=== PATIENT | female | born 1945 | race Caucasian/White ===

== ENCOUNTER 2017-05-03 09:20 | Inpatient (IN) | payer MEDICARE, OTHER ==
[~2017-05-03] VITALS: Ht 152.4 cm; Wt 54.4 kg
[~2017-05-03 09:20] MED LIST: ACLI400A2 IH; ALBU2.5V5 NEB; ALPR0.25 PO; Aspirin PO; CETI10TA22 PO; CHLO10CA5 PO; DOCU-109 PO; GABA-585 PO; GUAI1CAP16 PO; HYDR-2758 PO; HYDR-971 PO; Hydrocodone/Acetaminophen PO; IPRA3AMP NEB; LEVO150T PO; LISI10TA2 PO; LISI2.5T PO; LOSA100T2 PO; LOSA25TA PO; LOSA50TA2 PO; MAGN400O7 PO; MECL12.52 PO; METH29OI TP; METO-269 PO; METO25TA2 PO; ONDA4TAB7 PO; Oxycodone Hcl/Acetaminophen PO; PANT40TA5 PO; POLY17PO29 PO; PRED20TA PO; Polyethylene Glycol 3350 PO; SERT100T PO; TEMA30CA6 PO; TIOT18CA IH; TOLT2CAP PO; TOPI25TA52 PO; TRAM-48 PO; TRAZ150T49 PO; TRAZ50TA15 PO; VENTOLIN HFA18 GM IH
--- NOTE | 2017-05-03 09:44 | PHYS DOC ---
Past Medical History Past Medical History: Alcoholism, Anxiety, Arthritis, Cancer, COPD, Depression , GERD, High Cholesterol, Hypertension, Kidney Stone, Lung Disease, Migraines, Pneumonia, Seizure, Sinusitis, UTI Additional Past Medical Histor: suicidal ideation, alcoholism, LUNG CA Past Surgical History: Cancer Surgery, Cholecystectomy, Hysterectomy, Knee Replacement, Tonsillectomy Additional Past Surgical Histo: BACK SX Alcohol Use: Sober Drug Use: None Adult General Chief Complaint Chief Complaint: ABDOMINAL PAIN HPI HPI Patient is a 72 year old female who presents with abdominal pain. Pain started acutely overnight, localized to the. Umbilical, right middle and area. Patient denies previous similar symptoms, no nausea or vomiting. Patient has a new [place] abdomen but does not recall striking her abdomen or any falls or trauma. She denies that she takes any blood thinners. Prior abdominal surgeries include cholecystectomy and hysterectomy. She denies any fevers, has not attempted any symptom controlling medication. Primary care physician is Dr. Rdz Review of Systems Review of Systems Constitutional: Denies fever or chills [] Eyes: Denies change in visual acuity, redness, or eye pain [] HENT: Denies nasal congestion or sore throat [] Respiratory: Denies cough or shortness of breath [] Cardiovascular: Denies chest pain GI: Per history of present illness, denies changes in bowel or bladder. : Denies dysuria or hematuria [] Musculoskeletal: Denies back pain or joint pain [] Integument: Denies rash or skin lesions [] Neurologic: Denies headache, focal weakness or sensory changes [] Current Medications Current Medications Current Medications Medications (Trade) Dose Ordered Sig/Tatiana Start Time Stop Time Status Last Admin Dose Admin Dextrose/Sodium Chloride 1,000 ml @ 1,000 mls/hr 1X ONCE 05/03/17 11:45 05/03/17 12:44 DC 05/03/17 11:45 1,000 MLS/HR Fentanyl Citrate (Fentanyl 2ml Vial) 50 mcg 1X ONCE 05/03/17 09:45 05/03/17 09:46 DC 05/03/17 10:32 50 MCG Info (Do NOT chart on this entry -- for MONITORING) 1 each PRN DAILY PRN 05/03/17 10:45 05/05/17 10:44 Iohexol (Omnipaque 300 Mg/ml) 75 ml 1X ONCE 05/03/17 11:00 05/03/17 11:01 DC 05/03/17 10:50 75 ML Piperacillin Sod/ Tazobactam Sod (Zosyn Per Pharmacy) 1 each PRN DAILY PRN 05/03/17 10:45 Piperacillin Sod/ Tazobactam Sod 3.375 gm/Sodium Chloride 50 ml @ 100 mls/hr 1X ONCE 05/03/17 11:00 05/03/17 11:29 DC 05/03/17 12:03 100 MLS/HR Sodium Chloride 1,000 ml @ 100 mls/hr 1X ONCE 05/03/17 09:45 05/03/17 19:44 DC 05/03/17 10:26 100 MLS/HR Allergies Allergies Allergies Coded Allergies Type Severity Reaction Last Updated Verified No Known Medication Allergies Allergy Unknown 05/03/17 Yes codeine Adverse Reaction Intermediate GI 05/23/15 Yes oxycodone Adverse Reaction Intermediate "MADE ME SICK TO MY STOMACH" 05/23/15 Yes Physical Exam Physical Exam Constitutional: Well developed, well nourished, mild acute distress, non-toxic appearance. [] HENT: Normocephalic, atraumatic, bilateral external ears normal, oropharynx moist, no oral exudates, nose normal. [] Eyes: PERRLA, EOMI, conjunctiva normal, no discharge. [] Neck: Normal range of motion, no tenderness, supple, no stridor. [] Cardiovascular:Heart rate tachycardic with regular rhythm, no murmur [] Lungs & Thorax: Bilateral breath sounds clear to auscultation, no wheeze Abdomen: Bowel sounds normal, soft, nondistended, focal tenderness to palpation in the right middle quadrant and epigastric region with voluntary guarding, anterior abdominal wall bruise noted, negative McBurney's Skin: Warm, dry, no erythema, no rash. [] Back: No tenderness, no CVA tenderness. [] Extremities: No tenderness, no cyanosis, no clubbing, ROM intact, no edema. [] Neurologic: Alert and oriented X 3, normal motor function, normal sensory function, no focal deficits noted. [] Psychologic: Affect normal, judgement normal, mood normal. [] Current Patient Data Vital Signs Vital Signs Date Time Temp Pulse Resp B/P (MAP) Pulse Ox O2 Delivery O2 Flow Rate FiO2 05/03/17 12:06 118 19 149/70 (96) 93 Room Air 05/03/17 09:30 98.5 98.5 Lab Values Laboratory Tests Test 05/03/17 09:57 05/03/17 10:00 05/03/17 11:15 POC Hemoglobin 16.0 g/dL (12-15) H POC Hematocrit 47 % (36-40) H POC Sodium 143 mmol/L (135-145) POC Potassium 4.1 mmol/L (3.5-5.0) POC Chloride 103 mmol/L (98-110) POC Total CO2 25 mmol/L (23-32) Anion Gap 20 mmol/L (6-14) H POC Blood Urea Nitrogen 14 mg/dL (8-26) POC Creatinine 0.9 mg/dL (0.5-1.4) Glucose Level 79 mg/dL (70-99) POC Ionized Calcium (Enma) 1.02 mmol/L (1.13-1.32) L White Blood Count 6.8 x10^3/uL (4.0-11.0) Red Blood Count 4.52 x10^6/uL (3.50-5.40) Hemoglobin 14.7 g/dL (12.0-15.5) Hematocrit 43.0 % (36.0-47.0) Mean Corpuscular Volume 95 fL (79-100) Mean Corpuscular Hemoglobin 33 pg (25-35) Mean Corpuscular Hemoglobin Concent 34 g/dL (31-37) Red Cell Distribution Width 14.4 % (11.5-14.5) Platelet Count 276 x10^3/uL (140-400) Neutrophils (%) (Auto) 64 % (31-73) Lymphocytes (%) (Auto) 25 % (24-48) Monocytes (%) (Auto) 10 % (0-9) H Eosinophils (%) (Auto) 0 % (0-3) Basophils (%) (Auto) 1 % (0-3) Neutrophils # (Auto) 4.3 x10^3uL (1.8-7.7) Lymphocytes # (Auto) 1.7 x10^3/uL (1.0-4.8) Monocytes # (Auto) 0.7 x10^3/uL (0.0-1.1) Eosinophils # (Auto) 0.0 x10^3/uL (0.0-0.7) Basophils # (Auto) 0.1 x10^3/uL (0.0-0.2) Prothrombin Time 11.9 SEC (11.7-14.0) Prothrombin Time INR 0.9 (0.8-1.1) Lactic Acid Level 3.7 mmol/L (0.4-2.0) H Total Bilirubin 0.7 mg/dL (0.2-1.0) Direct Bilirubin 0.1 mg/dL (0.0-0.2) Aspartate Amino Transferase (AST) 93 U/L (15-37) H Alanine Aminotransferase (ALT) 69 U/L (14-59) H Alkaline Phosphatase 114 U/L (46-116) Total Protein 8.9 g/dL (6.4-8.2) H Albumin 4.1 g/dL (3.4-5.0) Lipase 164 U/L (73-393) Urine Collection Type Unknown Urine Color Yellow Urine Clarity Clear Urine pH 5.5 Urine Specific [place] >=1.030 Urine Protein 30 mg/dL (NEG-TRACE) Urine Glucose (UA) Negative mg/dL (NEG) Urine Ketones (Stick) 15 mg/dL (NEG) Urine Blood Small (NEG) Urine Nitrite Negative (NEG) Urine Bilirubin Negative (NEG) Urine Urobilinogen Dipstick 0.2 mg/dL (0.2 mg/dL) Urine Leukocyte Esterase Negative (NEG) Urine RBC 0 /HPF (0-2) Urine WBC 0 /HPF (0-4) Urine Squamous Epithelial Cells Few /LPF Urine Bacteria 0 /HPF (0-FEW) Laboratory Tests 05/03/17 10:00 Laboratory Tests 05/03/17 09:57 EKG EKG 126 bpm, sinus tach, normal axis, normal intervals, J-point elevation precordial leads, nonsichemic T waves, interpreted by tn Radiology/Procedures Radiology/Procedures CT abd/pelvis: IMPRESSION: 1. Streaky increased density in the subcutaneous fat of the right mid anterior abdominal wall compatible with nonspecific inflammation or contusion. Is there clinical evidence of cellulitis or trauma this region? 2. Otherwise no acute abdominal or pelvic abnormality is detected. Course & Med Decision Making Course & Med Decision Making Pertinent Labs and Imaging studies reviewed. (See chart for details) Pt given IV fentanyl and IV fluids started, EKG, UA, labs, CT abd pelvis ordered. Reviewed pt's history and she has a h/o Etoh abuse. When asked she states she still drinks but denies that she could have forgotten a fall. After IV fluids, pt still has elevated HR and has elevated lactic acid. Likely 2/2 to dehydration, infection less likely but IV zosyn given before remained of workup returned. I contacted Dr. Goodrich to discuss admission. She recommended hydration with repeat lactic acid and possible dispo home. Agreed and d5NS bolus ordered as pt has anion gap and concern for possible AKA,as urine is not returned. This was ordered. After another hour, pt's HR had not improved and BP started to increase. Pt may be withdrawing from alcohol and 5mg Valium ordered. Pt likely no longer candidate for discharge. Recontacted [facility] for admission, Dr. Alvarez accepted. Dragon Disclaimer Dragon Disclaimer This electronic medical record was generated, in whole or in part, using a voice recognition dictation system. Departure Departure Impression: Primary Impression: Alcohol withdrawal Additional Impressions: Abdominal contusion Alcoholic ketoacidosis Disposition: ADMITTED INPATIENT Admitting Physician: Brionna Alvarez Condition: GUARDED Referrals: EMMETT GOODEN MD (PCP) Problem Qualifiers MATEO WILKERSON MD May 03, 2017 09:44
[2017-05-03] MEDS ORDERED: fentaNYL PF VIAL 100 MCG/2 ML VIAL IV ONE (09:45)
[2017-05-03] MEDS ORDERED: IV NORMAL SALINE 1000ML BAG 1,000 ML IV ONE (09:45)
--- NOTE | 2017-05-03 09:46 | EKG ---
[facility] [address] [place] [address] Test Date: 2017-05-03 Test Time: 09:33:32 Pat Name: MAMTA KNIGHT Department: Room: Gender: F Travel Registered Nurse Icu: : 1945 Requested By: MATEO WILKERSON Order Number: [id number] Reading MD: Emanuel Nielson Measurements Intervals [place] Rate: 126 P: 121 AK: 134 QRS: 57 QRSD: 94 T: 26 QT: 304 QTc: 441 Interpretive Statements SINUS TACHYCARDIA Electronically Signed On 05-03-2017 10:18:24 CDT by Emanuel Nielson
[2017-05-03 10:02] LABS: POTASSIUM ISTAT 4.1 mmol/L (3.5-5.0)
[2017-05-03 10:27] LABS: ALBUMIN 4.1 g/dL (3.4-5.0); DIRECT BILIRUBIN 0.1 mg/dL (0.0-0.2); TOTAL BILIRUBIN 0.7 mg/dL (0.2-1.0); TOTAL PROTEIN 8.9 g/dL (6.4-8.2)
[2017-05-03 10:34] LABS: BASO # 0.1 x10^3/uL (0.0-0.2); BASO % 1 % (0-3); EOS % 0 % (0-3); HEMOGLOBIN 14.7 g/dL (12.0-15.5); LYMPH # 1.7 x10^3/uL (1.0-4.8); LYMPH % 25 % (24-48); MEAN CORPUSCULAR HEMOGLOBIN 33 pg (25-35); MEAN CORPUSCULAR HGB CONC 34 g/dL (31-37); MEAN CORPUSCULAR VOLUME 95 fL (79-100); MONO % 10 % (0-9); NEUT % 64 % (31-73); PLATELET COUNT 276 x10^3/uL (140-400); RED BLOOD COUNT 4.52 x10^6/uL (3.50-5.40); RED CELL DISTRIBUTION WIDTH 14.4 % (11.5-14.5); WHITE BLOOD COUNT 6.8 x10^3/uL (4.0-11.0)
[2017-05-03 10:43] LABS: INR 0.9 (0.8-1.1); PROTHROMBIN TIME PATIENT 11.9 SEC (11.7-14.0)
[2017-05-03] MEDS ORDERED: CONTRAST GIVEN MC PRN (10:45)
[2017-05-03] MEDS ORDERED: PIP/TAZO PER PHARMACY MC PRN (10:45)
[2017-05-03] MEDS ORDERED: PIPERACILLIN/TAZOBACTAM 3.375 GM in IV NORMAL SALINE 50ML 50 ML IV ONE (11:00)
[2017-05-03] MEDS ORDERED: IOHEXOL 300 MG/ML 75 ML VIAL IV ONE (11:00)
--- NOTE | 2017-05-03 11:27 | RAD ---
CT of the abdomen and pelvis with contrast, 05/03/2017: History: Abdominal pain Multidetector CT imaging was performed following an IV bolus injection of iodinated contrast material. No oral contrast material was administered as requested. Comparison is made to a study from 07/09/2016. There is mild linear atelectasis and/or scarring in the right base. There is no evidence of a hepatic mass or bile duct dilatation. The gallbladder is surgically absent. No pancreatic abnormality is detected. The spleen is of normal size. There is a tiny cyst in the upper pole the left kidney. The kidneys are otherwise unremarkable. No adrenal abnormality is seen. There is moderate aortoiliac calcific plaquing without evidence of aneurysm. No abdominal or pelvic adenopathy is seen. The uterus is surgically absent. A single fluid-filled small bowel loop in the left upper quadrant is at the upper limits of normal in size. There is gas and stool scattered throughout the colon. There is no evidence of obstruction. Thickening of the gastric cheng is likely due to lack of gastric distention. No free air or significant free fluid is evident in the abdomen or pelvis. There is streaky increased density in the subcutaneous tissues of the anterior abdominal wall at the mid abdominal level on the right. An internal fixation device is present in the left hip. There are mild scattered degenerative changes in the spine. IMPRESSION: 1. Streaky increased density in the subcutaneous fat of the right mid anterior abdominal wall compatible with nonspecific inflammation or contusion. Is there clinical evidence of cellulitis or trauma this region? 2. Otherwise no acute abdominal or pelvic abnormality is detected. PQRS Compliance Statement: One or more of the following individualized dose reduction techniques were utilized for this examination: 1. Automated exposure control 2. Adjustment of the mA and/or kV according to patient size 3. Use of iterative reconstruction technique
[2017-05-03 11:32] LABS: BILIRUBIN,URINE NEGATIVE (NEG); GLUCOSE,URINE NEGATIVE (NEG); NITRITE,URINE NEGATIVE (NEG); PH,URINE 5.5; PROTEIN,URINE 30 mg/dL (NEG-TRACE); UROBILINOGEN,URINE 0.2 mg/dL (0.2 mg/dL)
[2017-05-03] MEDS ORDERED: IV DEXTROSE 5% - 0.9 % NACL 1,000 ML IV ONE (11:45)
[2017-05-03 11:47] LABS: BACTERIA,URINE 0 /HPF (0-FEW); RBC,URINE 0 /HPF (0-2); SQUAMOUS EPITHELIAL CELL,UR FEW /LPF; WBC,URINE 0 /HPF (0-4)
[2017-05-03] MEDS: chlordiazePOXIDE HCL 25 MG CAPSULE PO SCH ×2 (13:15→18:07)
[2017-05-03] MEDS ORDERED: MULTIVIT INFUSN,ADULT 4,VIT K 10 ML, THIAMINE 100 MG, FOLIC ACID 1 MG in IV NORMAL SALI... IV ONE (13:15)
[2017-05-03] MEDS ORDERED: VENL75CA6 PO (13:22)
[2017-05-03] MEDS ORDERED: TRAZ150T49 PO (13:23)
[2017-05-03] MEDS ORDERED: METO-239 PO (13:24)
--- NOTE | 2017-05-03 14:30 | HP ---
ADMIT DATE: 05/03/2017 DATE OF SERVICE: 05/03/2017 CHIEF COMPLAINT: Abdominal pain. HISTORY OF PRESENT ILLNESS: The patient is a pleasant 72-year-old female who drinks vodka. We have admitted her in the past. Once again, she presents with abdominal pain after she fell. She does have a bruise on her abdomen. I suspect she fell after drinking. We did a CAT scan. It is not showing any severe problems, but she is tachycardic with a rate in the 120s and appears to be probably having some alcohol withdrawal. I discussed the case with the ER physician. We are going to admit the patient with alcohol withdrawal protocol. PAST MEDICAL HISTORY: Alcoholism, anxiety, arthritis, lung cancer, COPD, depression, GERD, hyperlipidemia, hypertension, kidney stones, migraines, pneumonia, seizure, sinusitis, UTI suicidal ideation, knee replacement, tonsillectomy and back surgery. ALLERGIES: CODEINE AND OXYCODONE. FAMILY HISTORY: Diabetes. SOCIAL HISTORY: She drinks heavily vodka, although she states she is trying to quit. I think she smokes, but she is telling she apparently has quit that as well. No drugs. MEDICATIONS: Reviewed. REVIEW OF SYSTEMS: GENERAL: No history of weight change, weakness or fevers. SKIN: No bruising, hair changes or rashes. EYES: No blurred, double or loss of vision. NOSE AND THROAT: No history of nosebleeds, hoarseness or sore throat. HEART: No history of palpitations, chest pain or shortness of breath on exertion. LUNGS: Denies cough, hemoptysis, wheezing or shortness of breath. GASTROINTESTINAL: She complains of abdominal pain. GENITOURINARY: No history of frequency, urgency, hesitancy or nocturia. NEUROLOGIC: She complains of agitation and weakness. PSYCHIATRIC: No history of panic, anxiety or depression. ENDOCRINE: No history of heat or cold intolerance, polyuria or polydipsia. EXTREMITIES: Denies muscle weakness, joint pain, pain on walking or stiffness. PHYSICAL EXAMINATION: VITAL SIGNS: Temperature afebrile, pulse 126, respirations 18, blood pressure 163/83. GENERAL: She is alert, cooperative, pleasant, but having some withdrawal. HEART: Tachycardic S1, S2. LUNGS: Clear but diminished. ABDOMEN: Soft. There is a large bruise with some tenderness. EXTREMITIES: Trace edema. SKIN: Thin and frail. ENDOCRINE: No thyromegaly. LYMPHATICS: No cervical nodes. HEMATOPOIETIC: No bruising. LABORATORY DATA: White count 6, hemoglobin 14, platelets 276. Electrolytes normal other than an anion gap of 20, ionized calcium of 1.02, AST 93, ALT 69, total protein 8.9, lactic acid a little high at 3.7. ASSESSMENT AND PLAN: Alcohol withdrawal with probable recent fall with contusion to her abdomen. Metabolic acidosis, probably multifactorial, perhaps even an element of alcoholic ketoacidosis. The patient has been admitted. We will give her IV fluids, multiple vitamins, thiamine, benzos, continue home medicines. YANNICK RAZO DO DR: KIA/dayton JOB#: [id number] / [id number]
[2017-05-03] MEDS: fentaNYL PF VIAL 100 MCG/2 ML VIAL IV PRN ×2 (18:08→21:44)
[2017-05-03] MEDS: PIPERACILLIN/TAZOBACTAM 2.25 GM in IV NORMAL SALINE 50ML 50 ML IV SCH (18:24)
[2017-05-03 18:51] VITALS: BP 172/82
[2017-05-03 19:00] VITALS: BP 154/91
[2017-05-03] MEDS: traZODone 50 MG TABLET. PO SCH (21:43)
[2017-05-03 23:00] VITALS: BP 129/77
[2017-05-04] MEDS: chlordiazePOXIDE HCL 25 MG CAPSULE PO SCH ×4 (00:55→17:22)
[2017-05-04] MEDS: PIPERACILLIN/TAZOBACTAM 2.25 GM in IV NORMAL SALINE 50ML 50 ML IV SCH ×2 (00:55→06:22)
--- NOTE | 2017-05-04 05:15 | ACF ---
Admission Forms Criteria ABDOMINAL PAIN Clinical Indications for Admission to Inpatient Care ( hoopa/check or initial the applicable condition/criteria): Admission is indicated for ANY ONE of the following (1)(2)(3)(4)(5)(6): [ ]I. Surgery needed that cannot be performed on ambulatory basis [ ]II. Peritoneal signs present (eg, rebound tenderness, rigidity) [ ]III. Evaluation requires patient to not eat or drink for extended period ( eg, more than 24 hours). [X]IV. Inpatient admission required[B] rather than observation care (see Abdominal Pain: Observation Care guideline as appropriate) because of ANY ONE of the following(7)(8)(9): [ ] a) Hemodynamic instability [ ]b) Severe pain requiring acute inpatient management [X]c) Identification of etiology or finding that requires inpatient care (eg, aortic dissection, free air,bowel ischemia)(10) [ ]d) Absent bowel sounds with complete ileus (11) [ ]e) Signs of intestinal obstruction[C] [ ]f) Suspected toxic megacolon [ ]g) Severe electrolyte abnormalities requiring inpatient care [ ]h) High fever or infection requiring inpatient admission as indicated by ANY ONE of the following (12)(13): [ ]i) Appropriate outpatient or observation care antimicrobial treatment unavailable, not effective, or not feasible [ ]ii) Documented bacteremia [ ]iii) Temperature greater than 104.9 degrees F (40.5 degrees C) (oral) [ ]iv) Temperature greater than 103.1 degrees F (39.5 degrees C) ( oral) or less than 96.8 degrees F (36 degrees C) (rectal) that does not respond to all emergency treatment measures [ ]i) IV fluid required rather than oral rehydration to replace significant ongoing (eg, for greater than 24 hours) losses (greater than 3 L/m2 per day)(14)(15) [ ]j) Percutaneous or open drainage (eg, abscess, biliary tract) procedures [ ]k) Parenteral nutrition regimen that must be implemented on inpatient basis [ ]l) Other condition, treatment, or monitoring requiring inpatient admission Extended stay beyond goal length of stay may be needed for (1)(3)(4)(10)(16): [ ]a) Surgery (e.g., colectomy, revascularization procedure) [ ]b) Persistent abdominal pain with suspected intra-abdominal process [ ]c) Diagnosed condition requiring continued stay (e.g., pancreatitis, complicated diverticulitis) The original [facility] content created by [facility] has been revised. The portions of the content which have been revised are identified through the use of italic text, and [facility] has neither reviewed nor approved the modified material.All other unmodified content is copyright [facility]. Please see references footnoted in the original [facility] edition 2015 I'm signing this administratively. I did not complete this note. Admission Criteria Met?: Yes NEMO CH May 04, 2017 05:15 MATEO WILKERSON MD May 04, 2017 07:49
[2017-05-04 06:18] LABS: BASO % 1 % (0-3); EOS % 1 % (0-3); HEMATOCRIT 34.2 % (36.0-47.0); HEMOGLOBIN 11.8 g/dL (12.0-15.5); LYMPH # 1.3 x10^3/uL (1.0-4.8); LYMPH % 27 % (24-48); MEAN CORPUSCULAR HEMOGLOBIN 33 pg (25-35); MEAN CORPUSCULAR HGB CONC 35 g/dL (31-37); MEAN CORPUSCULAR VOLUME 95 fL (79-100); MONO % 12 % (0-9); NEUT % 59 % (31-73); PLATELET COUNT 190 x10^3/uL (140-400); RED BLOOD COUNT 3.59 x10^6/uL (3.50-5.40); RED CELL DISTRIBUTION WIDTH 14.1 % (11.5-14.5); WHITE BLOOD COUNT 4.7 x10^3/uL (4.0-11.0)
[2017-05-04] MEDS: LEVOTHYROXINE 150 MCG TABLET PO SCH (06:22)
[2017-05-04] MEDS: fentaNYL PF VIAL 100 MCG/2 ML VIAL IV PRN (06:38)
[2017-05-04 06:46] LABS: CREATININE 0.5 mg/dL (0.6-1.0); GFR 121.3; POTASSIUM 3.7 mmol/L (3.5-5.1)
[2017-05-04 07:00] VITALS: BP 125/73
[2017-05-04] MEDS: MULTIVIT INFUSN,ADULT 4,VIT K 10 ML, FOLIC ACID 1 MG, THIAMINE 100 MG in IV DEXTROSE 5 ... IV SCH (08:24)
[2017-05-04] MEDS: METOPROLOL SUCC 24HR ER 25 MG TAB.ER.24H. PO SCH (08:33)
[2017-05-04] MEDS: PANTOPRAZOLE 40 MG TABLET.DR. PO SCH (08:33)
[2017-05-04] MEDS: VENLAFAXINE XR 37.5 MG CAP.ER.24H. PO SCH (08:33)
--- NOTE | 2017-05-04 08:58 | PDOC ---
PROGRESS NOTES Chief Complaint Chief Complaint Abd contusion Tachycardia ASSESSMENT AND PLAN: 1. Abd wall bruising: suspect after fall in alcoholic stupor. no organ damage. [place] PRN 2. EtOH W/D: Librium prevention protocol; banana bag 3. Anxiety/depression: on Effexor 4. Tobaccoism: quit smoking 11 yrs 5. COPD: no acute issues. nebs PRN 6. Hx lung CA, s/p RUL resection 7. HTN: well controlled on BB 8. Hypothyroidism: on synthroid 9. GERD: on PPI 10. OA 11. Diarrhea: more incontinence with sneezing etc. imodium PRN 12. Prophylaxis: livenox History of Present Illness History of Present Illness abd very painful. also bruise on leg. 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 ) Abdomen: Normal bowel sounds, Soft, Other (bruise above umbilicus. painful to touch) Extremities: No edema Skin: No rashes Labs LABS Laboratory Tests Test 05/03/17 09:57 05/03/17 10:00 05/03/17 11:15 05/03/17 14:15 Bedside Hemoglobin 16.0 g/dL (12-15) Bedside Hematocrit 47 % (36-40) Bedside Sodium 143 mmol/L (135-145) Bedside Potassium 4.1 mmol/L (3.5-5.0) Bedside Chloride 103 mmol/L (98-110) Bedside Total CO2 25 mmol/L (23-32) Anion Gap 20 mmol/L (6-14) Bedside Blood Urea Nitrogen 14 mg/dL (8-26) Bedside Creatinine 0.9 mg/dL (0.5-1.4) Glucose Level 79 mg/dL (70-99) Bedside Ionized Calcium (Enma) 1.02 mmol/L (1.13-1.32) White Blood Count 6.8 x10^3/uL (4.0-11.0) Red Blood Count 4.52 x10^6/uL (3.50-5.40) Hemoglobin 14.7 g/dL (12.0-15.5) Hematocrit 43.0 % (36.0-47.0) Mean Corpuscular Volume 95 fL (79-100) Mean Corpuscular Hemoglobin 33 pg (25-35) Mean Corpuscular Hemoglobin Concent 34 g/dL (31-37) Red Cell Distribution Width 14.4 % (11.5-14.5) Platelet Count 276 x10^3/uL (140-400) Neutrophils (%) (Auto) 64 % (31-73) Lymphocytes (%) (Auto) 25 % (24-48) Monocytes (%) (Auto) 10 % (0-9) Eosinophils (%) (Auto) 0 % (0-3) Basophils (%) (Auto) 1 % (0-3) Neutrophils # (Auto) 4.3 x10^3uL (1.8-7.7) Lymphocytes # (Auto) 1.7 x10^3/uL (1.0-4.8) Monocytes # (Auto) 0.7 x10^3/uL (0.0-1.1) Eosinophils # (Auto) 0.0 x10^3/uL (0.0-0.7) Basophils # (Auto) 0.1 x10^3/uL (0.0-0.2) Prothrombin Time 11.9 SEC (11.7-14.0) Prothromb Time International Ratio 0.9 (0.8-1.1) Lactic Acid Level 3.7 mmol/L (0.4-2.0) 2.9 mmol/L (0.4-2.0) Total Bilirubin 0.7 mg/dL (0.2-1.0) Direct Bilirubin 0.1 mg/dL (0.0-0.2) Aspartate Amino Transf (AST/SGOT) 93 U/L (15-37) Alanine Aminotransferase (ALT/SGPT) 69 U/L (14-59) Alkaline Phosphatase 114 U/L (46-116) Total Protein 8.9 g/dL (6.4-8.2) Albumin 4.1 g/dL (3.4-5.0) Lipase 164 U/L (73-393) Urine Collection Type Unknown Urine Color Yellow Urine Clarity Clear Urine pH 5.5 Urine Specific [place] >=1.030 Urine Protein 30 mg/dL (NEG-TRACE) Urine Glucose (UA) Negative mg/dL (NEG) Urine Ketones (Stick) 15 mg/dL (NEG) Urine Blood Small (NEG) Urine Nitrite Negative (NEG) Urine Bilirubin Negative (NEG) Urine Urobilinogen Dipstick 0.2 mg/dL (0.2 mg/dL) Urine Leukocyte Esterase Negative (NEG) Urine RBC 0 /HPF (0-2) Urine WBC 0 /HPF (0-4) Urine Squamous Epithelial Cells Few /LPF Urine Bacteria 0 /HPF (0-FEW) Test 05/03/17 20:52 05/04/17 05:30 05/04/17 07:09 Glucose (Fingerstick) 120 mg/dL (70-99) 92 mg/dL (70-99) White Blood Count 4.7 x10^3/uL (4.0-11.0) Red Blood Count 3.59 x10^6/uL (3.50-5.40) Hemoglobin 11.8 g/dL (12.0-15.5) Hematocrit 34.2 % (36.0-47.0) Mean Corpuscular Volume 95 fL (79-100) Mean Corpuscular Hemoglobin 33 pg (25-35) Mean Corpuscular Hemoglobin Concent 35 g/dL (31-37) Red Cell Distribution Width 14.1 % (11.5-14.5) Platelet Count 190 x10^3/uL (140-400) Neutrophils (%) (Auto) 59 % (31-73) Lymphocytes (%) (Auto) 27 % (24-48) Monocytes (%) (Auto) 12 % (0-9) Eosinophils (%) (Auto) 1 % (0-3) Basophils (%) (Auto) 1 % (0-3) Neutrophils # (Auto) 2.8 x10^3uL (1.8-7.7) Lymphocytes # (Auto) 1.3 x10^3/uL (1.0-4.8) Monocytes # (Auto) 0.6 x10^3/uL (0.0-1.1) Eosinophils # (Auto) 0.0 x10^3/uL (0.0-0.7) Basophils # (Auto) 0.0 x10^3/uL (0.0-0.2) Sodium Level 139 mmol/L (136-145) Potassium Level 3.7 mmol/L (3.5-5.1) Chloride Level 103 mmol/L (98-107) Carbon Dioxide Level 29 mmol/L (21-32) Anion Gap 7 (6-14) Blood Urea Nitrogen 8 mg/dL (7-20) Creatinine 0.5 mg/dL (0.6-1.0) Estimated GFR (Cockcroft-Gault) 121.3 Glucose Level 101 mg/dL (70-99) Calcium Level 8.0 mg/dL (8.5-10.1) JERRY FARRELL MD May 04, 2017 08:58
[2017-05-04 10:46] VITALS: BP 143/72
[2017-05-04] MEDS: HYDROcodone/APAP 5/325MG 1 TAB TABLET PO PRN ×2 (10:50→20:41)
[2017-05-04] MEDS: LOPERAMIDE 2 MG CAPSULE PO PRN (12:39)
[2017-05-04 14:48] VITALS: BP 135/70
[2017-05-04] MEDS ORDERED: chlordiazePOXIDE HCL 25 MG CAPSULE ONE (17:21)
[2017-05-04 19:11] VITALS: BP 130/69
[2017-05-04] MEDS ORDERED: traZODone 50 MG TABLET. ONE (20:32)
[2017-05-04] MEDS ORDERED: traZODone 100 MG TABLET. ONE (20:33)
[2017-05-04] MEDS: traZODone 50 MG TABLET. PO SCH (20:36)
[2017-05-04] MEDS ORDERED: HYDROcodone/APAP 5/325MG 1 TAB TABLET ONE (20:39)
[2017-05-04 23:00] VITALS: BP 132/64
[2017-05-05 03:00] VITALS: BP 128/65
[2017-05-05 04:39] LABS: BASO % 1 % (0-3); EOS % 3 % (0-3); HEMOGLOBIN 11.4 g/dL (12.0-15.5); LYMPH # 1.6 x10^3/uL (1.0-4.8); LYMPH % 30 % (24-48); MEAN CORPUSCULAR HEMOGLOBIN 33 pg (25-35); MEAN CORPUSCULAR HGB CONC 34 g/dL (31-37); MEAN CORPUSCULAR VOLUME 97 fL (79-100); MONO % 9 % (0-9); NEUT % 57 % (31-73); PLATELET COUNT 153 x10^3/uL (140-400); RED CELL DISTRIBUTION WIDTH 14.1 % (11.5-14.5); WHITE BLOOD COUNT 5.2 x10^3/uL (4.0-11.0)
[2017-05-05 04:55] LABS: CALCIUM 7.6 mg/dL (8.5-10.1); CREATININE 0.6 mg/dL (0.6-1.0); GFR 98.3; POTASSIUM 3.4 mmol/L (3.5-5.1)
[2017-05-05] MEDS ORDERED: LEVOTHYROXINE 150 MCG TABLET ONE (05:44)
[2017-05-05] MEDS: LEVOTHYROXINE 150 MCG TABLET PO SCH (05:49)
[2017-05-05] MEDS: HYDROcodone/APAP 5/325MG 1 TAB TABLET PO PRN (05:52)
[2017-05-05] MEDS ORDERED: HYDROcodone/APAP 5/325MG 1 TAB TABLET ONE (05:52)
[2017-05-05 07:00] VITALS: BP 97/61
[2017-05-05] MEDS ORDERED: PANTOPRAZOLE 40 MG TABLET.DR. PO ONE (08:21)
[2017-05-05] MEDS ORDERED: VENLAFAXINE 75 MG TABLET. ONE (08:21)
[2017-05-05] MEDS ORDERED: METOPROLOL SUCC 24HR ER 25 MG TAB.ER.24H. PO ONE (08:21)
[2017-05-05] MEDS: MULTIVIT INFUSN,ADULT 4,VIT K 10 ML, FOLIC ACID 1 MG, THIAMINE 100 MG in IV DEXTROSE 5 ... IV SCH (08:35)
[2017-05-05] MEDS: PANTOPRAZOLE 40 MG TABLET.DR. PO SCH (08:36)
[2017-05-05] MEDS: METOPROLOL SUCC 24HR ER 25 MG TAB.ER.24H. PO SCH (08:37)
[2017-05-05] MEDS ORDERED: VENLAFAXINE XR 37.5 MG CAP.ER.24H. PO ONE (08:39)
[2017-05-05] MEDS: VENLAFAXINE XR 37.5 MG CAP.ER.24H. PO SCH (08:43)
[2017-05-05] MEDS ORDERED: LOPERAMIDE 2 MG CAPSULE PO ONE (10:04)
[2017-05-05 11:00] VITALS: BP 113/73
[2017-05-05] MEDS: LOPERAMIDE 2 MG CAPSULE PO PRN (11:01)
[2017-05-05 14:35] VITALS: BP 103/62
--- NOTE | 2017-05-07 08:44 | DS ---
DATE OF DISCHARGE: 05/05/2017 CHIEF COMPLAINT: Abdominal contusion, tachycardia. HOSPITAL COURSE: The patient is a 72-year-old well known alcoholic, who presents with abdominal wall bruising. 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 She was placed on Librium for withdrawal prevention with good success. Abdominal pain was treated with pain medications and no other significant issues occurred. PHYSICAL EXAM: VS: stable GENERAL: A&O, NAD CV: RRR PULM: clear to auscultation ABD: BS+, hematoma above umbilicus EXTR: no edema, bruise on L lat thigh DISCHARGE DISPOSITION: To home. DISCHARGE CONDITION: Improved. DISCHARGE DIAGNOSES: Abdominal wall bruising and alcoholism. DISCHARGE MEDICATIONS: Please refer to MAR DISCHARGE INSTRUCTIONS: The patient will follow up with her PCP DAMARI. She was strongly urged to stop drinking. JERRY FARRELL MD DR: ANGE/nts JOB#: [id number] / [id number] EMMETT Castle MDD
== END 2017-05-05 18:51 | disposition home health service (06) | DRG 897 ==
LOC: ER 09:20 → 6 SOUTH 12:40 → UNDOADMIN 12:40 → ED HOLD 12:40 → 5 SOUTH 16:46
PROVIDERS: ADMIT Internal Medicine; ATTEND Internal Medicine
DX: F10.239 Alcohol dependence with withdrawal, unspecified (principal); E87.2 Acidosis; S30.1XXA Contusion of abdominal wall, initial encounter; J44.9 Chronic obstructive pulmonary disease, unspecified; K21.9 Gastro-esophageal reflux disease without esophagitis; E03.9 Hypothyroidism, unspecified; E78.00 Pure hypercholesterolemia, unspecified; E78.5 Hyperlipidemia, unspecified; F17.200 Nicotine dependence, unspecified, uncomplicated; F32.9 Major depressive disorder, single episode, unspecified; F41.9 Anxiety disorder, unspecified; I10 Essential (primary) hypertension; Z83.3 Family history of diabetes mellitus; Z85.118 Personal history of other malignant neoplasm of bronchus and lung; Z87.442 Personal history of urinary calculi; Z90.2 Acquired absence of lung [part of]; Z90.710 Acquired absence of both cervix and uterus; Z96.659 Presence of unspecified artificial knee joint; F10.20 Alcohol dependence, uncomplicated; G43.909 Migraine, unspecified, not intractable, without status migrainosus; M19.90 Unspecified osteoarthritis, unspecified site; Z91.5 Personal history of self-harm; Z90.49 Acquired absence of other specified parts of digestive tract; Z90.89 Acquired absence of other organs; Z88.5 Allergy status to narcotic agent; R19.7 Diarrhea, unspecified; X58.XXXA Exposure to other specified factors, initial encounter; Y93.89 Activity, other specified; Y92.89 Other specified places as the place of occurrence of the external cause; Y99.8 Other external cause status
CPT/HCPCS: 36415; 74177; 80047; 80048; 80076; 81001; 82962; 83605; 83690; 85025; 85610; 87040; 93005; 96361; 96365; 96366; 96367; 96375; J2543; J3010; J3360; J7030; J7042; Q9967; 97530; 97535; 99285-25

== ENCOUNTER → 2017-10-06 | Outpatient (CLI) | payer OTHER | END | disposition home or self-care (01) | LOC: KCIC US 08:20 | DX: R19.00 Intra-abdominal and pelvic swelling, mass and lump, unspecified site (principal) | CPT/HCPCS: 76705 ==

== ENCOUNTER → 2018-03-24 | Outpatient (CLI) | payer OTHER | END | disposition home or self-care (01) | LOC: KCIC US 07:27 | DX: R10.11 Right upper quadrant pain (principal); I10 Essential (primary) hypertension; E78.5 Hyperlipidemia, unspecified; E78.00 Pure hypercholesterolemia, unspecified; E66.9 Obesity, unspecified; K21.9 Gastro-esophageal reflux disease without esophagitis; G43.909 Migraine, unspecified, not intractable, without status migrainosus; Z85.118 Personal history of other malignant neoplasm of bronchus and lung; Z87.891 Personal history of nicotine dependence; Z87.442 Personal history of urinary calculi; Z82.49 Family history of ischemic heart disease and other diseases of the circulatory system; Z90.49 Acquired absence of other specified parts of digestive tract | CPT/HCPCS: 76705 ==

== ENCOUNTER 2018-03-27 15:01 | Emergency (ER) | payer OTHER ==
[2018-03-27] MEDS: IPRATRPIUM/ALBUTEROL 0.5/2.5MG 3 ML NEBU. NEB (15:17)
[2018-03-27 15:44] LABS: ADD MAN DIFF? NO
[2018-03-27 15:47] LABS: BASO # 0.1 x10^3/uL (0.0-0.2); BASO % 1 % (0-3); EOS # 0.5 x10^3/uL (0.0-0.7); EOS % 6 % (0-3); HEMATOCRIT 39.8 % (36.0-47.0); HEMOGLOBIN 13.4 g/dL (12.0-15.5); LYMPH # 2.5 x10^3/uL (1.0-4.8); LYMPH % 30 % (24-48); MEAN CORPUSCULAR HEMOGLOBIN 29 pg (25-35); MEAN CORPUSCULAR HGB CONC 34 g/dL (31-37); MEAN CORPUSCULAR VOLUME 88 fL (79-100); MONO # 0.7 x10^3/uL (0.0-1.1); MONO % 8 % (0-9); NEUT # 4.5 x10^3uL (1.8-7.7); NEUT % 55 % (31-73); PLATELET COUNT 252 x10^3/uL (140-400); RED BLOOD COUNT 4.55 x10^6/uL (3.50-5.40); RED CELL DISTRIBUTION WIDTH 12.9 % (11.5-14.5); WHITE BLOOD COUNT 8.3 x10^3/uL (4.0-11.0)
[2018-03-27 15:55] LABS: ANION GAP 7 (6-14); BLOOD UREA NITROGEN 13 mg/dL (7-20); CALCIUM 8.5 mg/dL (8.5-10.1); CARBON DIOXIDE 28 mmol/L (21-32); CHLORIDE 103 mmol/L (98-107); CREATININE 0.9 mg/dL (0.6-1.0); GFR 61.4; GLUCOSE 112 mg/dL (70-99); PARTIAL THROMBOPLASTIN TIME 23 SEC (24-38); POTASSIUM 4.3 mmol/L (3.5-5.1); PROTHROMBIN TIME PATIENT 12.6 SEC (11.7-14.0); SODIUM 138 mmol/L (136-145)
[2018-03-27] MEDS: methylPREDNISolone SOD SUCC PF 125 MG/2 ML VIAL. IV (16:03)
[2018-03-27 16:04] LABS: TROPONINI < 0.017 ng/mL (0.000-0.055)
[2018-03-27 16:08] LABS: NT-PRO BNP 352 pg/mL (0-124)
[2018-03-27] MEDS: AZITHROMYCIN 250 MG TABLET. PO (17:45)
== END 2018-03-27 17:53 | disposition home or self-care (01) ==
LOC: ER 15:01
DX: R06.02 Shortness of breath (principal); R05 Cough; R06.2 Wheezing; J44.9 Chronic obstructive pulmonary disease, unspecified; G43.909 Migraine, unspecified, not intractable, without status migrainosus; K21.9 Gastro-esophageal reflux disease without esophagitis; E78.00 Pure hypercholesterolemia, unspecified; I10 Essential (primary) hypertension; Z88.5 Allergy status to narcotic agent; Z87.09 Personal history of other diseases of the respiratory system
CPT/HCPCS: 36415; 71045; 80048; 83880; 84484; 85025; 85610; 85730; 93005; 94640; 94660; 96374; 99285-25; J2930; J7620; Q0144

== ENCOUNTER → 2018-04-26 | Day surgery (SDC) | payer OTHER ==
[~2018-04-26] MED LIST changes: +ASPI-630 PO; +AZIT250T PO; +HYDROCORTISONE SOD SUCC/PF 100 MG/2 ML VIAL. ONE; -IPRA3AMP NEB; +IPRA3AMP29 NEB; +IV RINGERS,LACTATED 1000ML 1,000 ML IV SCH; +LIDOCAINE 1% PF 2 ML VIAL. ID PRN; +LIDOCAINE 1% PF 5 ML VIAL. ONE; +LOVA20TA2 PO; +METO-239 PO; +NALT50TA PO; +ONDANSETRON PF 4 MG/2 ML VIAL. IV PRN; +PRED50TA PO; +PROAIR HFA8.5 GM INH; +PROCHLORPERAZINE 10 MG/2 ML VIAL. IV PRN; +PROPOFOL 0 ML IV ONE; +ROCURONIUM 50 MG/5 ML VIAL. ONE; +SUCCINYLCHOLINE 200 MG/10 ML VIAL. ONE; +TRAZ-85 PO; -TRAZ50TA15 PO; +VENL75CA6 PO; +fentaNYL PF VIAL 100 MCG/2 ML VIAL IV PRN; +fentaNYL PF VIAL 100 MCG/2 ML VIAL ONE
[2018-04-26 10:37] VITALS: BP 124/61
--- NOTE | 2018-04-26 11:46 | RAD ---
Abdominal wall ultrasound, 04/26/2018: History: Mass, pain The area of patient concern in the right upper quadrant where she reports tenderness and a lump was carefully scanned. Normal heterogeneous fatty subcutaneous soft tissues are evident. No discrete mass or abnormal fluid collection is seen. If clinical concern persists, CT scanning may be useful for further evaluation.
--- NOTE | 2018-04-26 12:45 | PDOC ---
SURGICAL PROGRESS NOTE Subjective 73 yo F with RUQ abd pain. Previous CT demonstrated cellulitis. Previous US demonstrated small cysts. US today is without abnormality. Palpable abnormality not noted. Given negative US, would favor not proceeding with surgical exploration. D/w pt and pt's friend, whom are in agreement. Vital Signs Vital Signs Date Time Temp Pulse Resp B/P (MAP) Pulse Ox O2 Delivery O2 Flow Rate FiO2 04/26/18 10:37 98.4 68 16 124/61 97 98.4 JUDY DUKES MD Apr 26, 2018 12:45
== END ==
LOC: SURG 09:39
PROVIDERS: ATTEND Surgery
DX: R10.13 Epigastric pain (principal); E66.3 Overweight; Z68.27 Body mass index [BMI] 27.0-27.9, adult; F10.21 Alcohol dependence, in remission; E78.5 Hyperlipidemia, unspecified; J44.9 Chronic obstructive pulmonary disease, unspecified; I10 Essential (primary) hypertension; K21.9 Gastro-esophageal reflux disease without esophagitis; G43.909 Migraine, unspecified, not intractable, without status migrainosus; E66.9 Obesity, unspecified; J43.8 Other emphysema; M06.9 Rheumatoid arthritis, unspecified; M10.9 Gout, unspecified; E05.90 Thyrotoxicosis, unspecified without thyrotoxic crisis or storm; F41.9 Anxiety disorder, unspecified; Z98.890 Other specified postprocedural states; Z98.42 Cataract extraction status, left eye; Z98.41 Cataract extraction status, right eye; Z98.51 Tubal ligation status; Z90.710 Acquired absence of both cervix and uterus; Z96.652 Presence of left artificial knee joint; Z85.118 Personal history of other malignant neoplasm of bronchus and lung; Z90.49 Acquired absence of other specified parts of digestive tract; Z88.6 Allergy status to analgesic agent; Z88.8 Allergy status to other drugs, medicaments and biological substances; Z79.82 Long term (current) use of aspirin; Z79.899 Other long term (current) drug therapy; Z87.891 Personal history of nicotine dependence; Z88.5 Allergy status to narcotic agent; Z87.09 Personal history of other diseases of the respiratory system; Z87.442 Personal history of urinary calculi; Z86.73 Personal history of transient ischemic attack (TIA), and cerebral infarction without residual deficits; Z82.49 Family history of ischemic heart disease and other diseases of the circulatory system; Z83.3 Family history of diabetes mellitus
CPT/HCPCS: 76705; J0330; J3010; J1720; J2704

== ENCOUNTER → 2018-05-03 | Outpatient (CLI) | payer OTHER ==
[2018-04-26 10:37] VITALS: BP 124/61
[~2018-05-03] MED LIST changes: +CONTRAST GIVEN. MC PRN; -HYDROCORTISONE SOD SUCC/PF 100 MG/2 ML VIAL. ONE; +IOHEXOL 300 MG/ML 100ML VIAL. IV ONE; -IV RINGERS,LACTATED 1000ML 1,000 ML IV SCH; -LIDOCAINE 1% PF 2 ML VIAL. ID PRN; -LIDOCAINE 1% PF 5 ML VIAL. ONE; -ONDANSETRON PF 4 MG/2 ML VIAL. IV PRN; -PROCHLORPERAZINE 10 MG/2 ML VIAL. IV PRN; -PROPOFOL 0 ML IV ONE; -ROCURONIUM 50 MG/5 ML VIAL. ONE; -SUCCINYLCHOLINE 200 MG/10 ML VIAL. ONE; -fentaNYL PF VIAL 100 MCG/2 ML VIAL IV PRN; -fentaNYL PF VIAL 100 MCG/2 ML VIAL ONE
[2018-05-03 10:06] LABS: CREATININE 0.9 mg/dL (0.6-1.0); GFR 61.4
--- NOTE | 2018-05-03 12:21 | RAD ---
CT ANGIOGRAPHY CHEST Indication: SHORTNESS OF AIR HX: LUNG CA
IV OMNI 300 75 MLS
. Comparison: No comparison is available. Technique: After intravenous contrast administration, CT imaging was performed of the chest. MIP reconstructions were obtained. Exposure: One or more of the following individualized dose reduction techniques were utilized for this examination: 1. Automated exposure control 2. Adjustment of the mA and/or kV according to patient size 3. Use of iterative reconstruction technique. FINDINGS: Pulmonary arteries:No evidence of pulmonary embolism. Thoracic aorta: Calcification and mild mural plaque, no evidence of aneurysm or dissection. Thyroid gland:Visualized aspect is unremarkable. Heart: Minimal coronary artery calcification. Esophagus: Mild wall thickening, particularly distally. Small hiatal hernia. Pleural spaces: No significant effusion Lungs: Mild linear markings in the lingula of the left lung, and in the right lower lobe, likely atelectasis or scarring. Trachea and central airways: Patent Bones: Mild degenerative spondylosis. Upper abdomen: Slices through the upper abdomen are limited due to the technique . Small low-density lesion upper pole left kidney measuring 12 mm, too small to obtain accurate density measurement. Splenic heterogeneity is likely due to bolus timing. IMPRESSION: 1. No evidence of pulmonary embolism. 2. Mild esophageal wall thickening, greater distally, is nonspecific. Common etiologies would include esophagitis or scarring. 3. Small low-density lesion at the upper pole left kidney is too small to characterize but would commonly represent a cyst. 4. Mild linear markings in both lungs, likely mild atelectasis or fibrosis. Electronically signed by: Raymundo Cordon MD (05/03/2018 12:18 PM) [facility]
== END | disposition home or self-care (01) ==
LOC: CT 09:10
PROVIDERS: ATTEND Internal Medicine Pulmonary Disease
DX: C34.92 Malignant neoplasm of unspecified part of left bronchus or lung (principal); K44.9 Diaphragmatic hernia without obstruction or gangrene; M47.894 Other spondylosis, thoracic region; E03.9 Hypothyroidism, unspecified; Z79.899 Other long term (current) drug therapy; Z87.891 Personal history of nicotine dependence; Z88.8 Allergy status to other drugs, medicaments and biological substances
CPT/HCPCS: 36415; 71275; 82565; 84520; Q9967

== ENCOUNTER → 2018-12-09 | Outpatient (CLI) | payer OTHER ==
[2018-04-26 10:37] VITALS: BP 124/61
[~2018-12-09] MED LIST changes: +ALBU2.5V8 INH; -CONTRAST GIVEN. MC PRN; -HYDR-2758 PO; +HYDR-2761 PO; +HYDR-3164 PO; -HYDR-971 PO; -IOHEXOL 300 MG/ML 100ML VIAL. IV ONE; +LOSA-73 PO; -LOSA50TA2 PO; -PROAIR HFA8.5 GM INH; +TRAZ-118 PO; -TRAZ-85 PO
--- NOTE | 2018-12-12 12:27 | KCIC ---
Bilateral digital screening mammograms with 3-D tomosynthesis: Reason for examination: Routine screening. Comparison is made to previous study dated 08/18/2011 and 03/17/2010. Bilateral mammograms in CC and oblique projections were obtained with 2-D imaging and 3-D tomosynthesis imaging on a Siemens Inspiration unit and reviewed on the workstation. Interpretation was made with the benefit of CAD. The skin and nipples show no abnormalities. No abnormal axillary lymph nodes are seen. The breast parenchyma shows scattered fatty and fibroglandular density. (Breast density: Category B.) There continue to be nodular parenchymal asymmetries bilaterally which are stable. There are no new dominant masses, suspicious calcifications or architectural distortion. Impression: No evidence of malignancy. Recommend routine screening. BI-RAD Category 2: Benign. "Our facility is accredited by the [employer] Mammography Program." This patient's information has been entered into a reminder system for the patient to be notified with the results of her examination and a target date for the next mammogram. Electronically signed by: Alicia Kimble MD (12/12/2018 12:25 PM) [id number]
== END | disposition home or self-care (01) ==
LOC: KCIC MAMMO 12:35
PROVIDERS: ATTEND Family Medicine
DX: Z12.31 Encounter for screening mammogram for malignant neoplasm of breast (principal)
CPT/HCPCS: 77063; 77067

== ENCOUNTER → 2019-09-20 | Outpatient (CLI) | payer MEDICARE, OTHER ==
[2018-04-26 10:37] VITALS: BP 124/61
[~2019-09-20] MED LIST changes: -ACLI400A2 IH; +ACLI400A3 IH; -CETI10TA22 PO; +CETI10TA24 PO; -MECL12.52 PO; +MECL12.573 PO; -PANT40TA5 PO; +PANT40TA77 PO
--- NOTE | 2019-09-20 16:14 | KCIC ---
Bilateral lower extremity arterial ultrasound History: Poor circulation of extremities, claudication, leg cramps at night Findings: Multiple grayscale, color, and duplex spectral analysis sonographic images were acquired of the lower extremity arteries bilaterally. There are no previous similar exams. There are monophasic waveforms of the distal posterior tibial arteries bilaterally, otherwise biphasic and triphasic waveforms. No vessel occlusion is demonstrated. There is diffuse plaque. There are increased velocities of the common femoral arteries bilaterally right greater than left, lesser degree of elevation of the profunda femoris arteries bilaterally. Velocities in cm/sec: RIGHT Common femoral artery 153 Profunda femoris artery 125 Proximal SFA 117 Mid SFA 108 Distal SFA 112 Popliteal artery 63 Posterior tibial artery 64 proximally and 38 distally Peroneal artery 70 Anterior tibial artery 71 Dorsalis pedis artery 65 LEFT: Common femoral artery 125 Profunda femoris artery 135 Proximal SFA 101 Mid SFA 95 Distal SFA 102 Popliteal artery 65 Posterior tibial artery 82 proximally and 20 distally Peroneal artery 94 Anterior tibial artery 58 Dorsalis pedis artery 36 Impression: 1. There is diffuse plaque bilaterally. There are somewhat higher velocities of the common femoral arteries bilaterally which could be due to stenoses of the external iliac arteries bilaterally or related to the patient's blood pressure. No vessel occlusion is demonstrated. There is relative diminished, although detectable flow in the distal posterior tibial arteries bilaterally. Electronically signed by: Joseph Li MD (09/20/2019 4:11 PM) [facility]
== END | disposition home or self-care (01) ==
LOC: KCIC US 10:44
PROVIDERS: ATTEND Family Medicine
DX: I70.293 Other atherosclerosis of native arteries of extremities, bilateral legs (principal)
CPT/HCPCS: 93923

== ENCOUNTER 2019-09-29 07:01 | Outpatient (CLI) | payer MEDICARE ==
[2019-09-29] VITALS (9 sets, daily range): BP systolic 119–148; BP diastolic 55–83
[~2019-09-29] VITALS: Ht 154.9 cm; Wt 70.8 kg
[2019-09-29 07:39] LABS: BASO # 0.1 x10^3/uL (0.0-0.2); BASO % 1 % (0-3); EOS # 0.4 x10^3/uL (0.0-0.7); EOS % 5 % (0-3); HEMATOCRIT 36.4 % (36.0-47.0); HEMOGLOBIN 12.1 g/dL (12.0-15.5); LYMPH # 2.2 x10^3/uL (1.0-4.8); LYMPH % 29 % (24-48); MEAN CORPUSCULAR HEMOGLOBIN 28 pg (25-35); MEAN CORPUSCULAR HGB CONC 33 g/dL (31-37); MEAN CORPUSCULAR VOLUME 85 fL (79-100); MONO # 0.7 x10^3/uL (0.0-1.1); MONO % 9 % (0-9); NEUT # 4.3 x10^3/uL (1.8-7.7); NEUT % 56 % (31-73); PLATELET COUNT 327 x10^3/uL (140-400); RED BLOOD COUNT 4.28 x10^6/uL (3.50-5.40); RED CELL DISTRIBUTION WIDTH 13.4 % (11.5-14.5); WHITE BLOOD COUNT 7.6 x10^3/uL (4.0-11.0)
[2019-09-29 07:44] LABS: CALCIUM 9.2 mg/dL (8.5-10.1); CREATININE 1.2 mg/dL (0.6-1.0); GFR 43.9; POTASSIUM 4.5 mmol/L (3.5-5.1)
[2019-09-29] MEDS ORDERED: LIDOCAINE WITH 8.4% SOD BICARB 3 ML DISP.SYRIN. ONE (07:46)
[2019-09-29] MEDS ORDERED: IODIXANOL 320 MG/ML 100 ML VIAL. ONE (07:46)
[2019-09-29 07:49] LABS: PROTHROMBIN TIME PATIENT 12.5 SEC (11.7-14.0)
[2019-09-29 07:54] LABS: ALBUMIN 3.3 g/dL (3.4-5.0); ALBUMIN/GLOBULIN RATIO 0.8 (1.0-1.7); TOTAL BILIRUBIN 0.4 mg/dL (0.2-1.0); TOTAL PROTEIN 7.5 g/dL (6.4-8.2)
[2019-09-29] MEDS ORDERED: POTA10TA12 PO (08:01)
[2019-09-29] MEDS ORDERED: OMEP40CA45 PO (08:01)
[2019-09-29] MEDS ORDERED: CRESTOR40 MG PO (08:01)
[2019-09-29] MEDS ORDERED: TROS20TA2 PO (08:01)
[2019-09-29] MEDS ORDERED: LOSA-73 PO (08:01)
[2019-09-29] MEDS ORDERED: MIDAZOLAM HCL/PF 2 MG/2 ML VIAL. ONE (08:22)
[2019-09-29] MEDS ORDERED: HEPARIN for IV BOLUS 10,000 UNIT/10 ML VIAL. ONE (08:23)
[2019-09-29] MEDS ORDERED: fentaNYL PF VIAL 100 MCG/2 ML VIAL ONE (08:23)
[2019-09-29] MEDS ORDERED: IODIXANOL 320 MG/ML 100 ML VIAL. IART ONE (08:45)
[2019-09-29] MEDS ORDERED: LIDOCAINE WITH 8.4% SOD BICARB 3 ML DISP.SYRIN. IJ ONE (08:45)
[2019-09-29] MEDS ORDERED: MIDAZOLAM HCL/PF 2 MG/2 ML VIAL. IV ONE (08:45)
[2019-09-29] MEDS ORDERED: fentaNYL PF VIAL 100 MCG/2 ML VIAL IV ONE (08:45)
[2019-09-29] MEDS ORDERED: HEPARIN for IV BOLUS 10,000 UNIT/10 ML VIAL. IV ONE (09:45)
--- NOTE | 2019-09-29 13:36 | NUR ---
pt discharged home with family. Instructions reviewed with pt. PAMELLA garzon'shalom. Pt ambulated and tolerated PO
--- NOTE | 2019-10-03 16:36 | RAD ---
September 29, 2019 1. Abdominal aortogram 2... Left lower extremity angiography 3. Angioplasty of the uliak-mrs-qwrd popliteal artery extending into the tibial peroneal trunk INDICATION: Left lower extremity pain consistent with claudication. COMPARISON STUDY: Left lower extremity arterial duplex ultrasound September 20, 2019 Discussion: The procedure was explained in its entirety to the patient or the patients designated technology sales representative by a member of the treatment team, including a discussion of the risks, benefits and commonly accepted alternatives to the procedure, as well as the expected consequences of no therapy whatsoever. Discussion of the risks included, but was not limited to, those that are most frequent and those that are rare but possibly severe or life-threatening, as well as the possibility of unforeseen complications. All elements of maximal sterile barrier technique including the use of a cap, mask, sterile gown, sterile gloves, large sterile sheet, appropriate hand hygiene, and 2% chlorhexidine for cutaneous antisepsis (or acceptable alternative antiseptic per current guidelines) were followed for this procedure. The right groin was prepped and draped using sterile barrier technique. Ultrasound demonstrates the right common femoral artery to be patent. The artery was accessed using direct ultrasound guidance and micropuncture technique. Reference ultrasound images were saved the medical record. A 5 Bulgarian vascular sheath was placed. A catheter was advanced into the abdominal aorta. Abdominal aortogram was obtained. No aneurysm or stenosis is seen. Mild tapering of the infrarenal abdominal aorta noted. Common iliac arteries are patent. Moderate to high-grade left internal iliac artery is stenosis is seen proximally. Right internal iliac artery is patent. External iliac arteries are patent. Right common femoral artery is patent. Right profunda artery is patent. Right superficial femoral artery is patent. The right rzmay-tbi-agzu popliteal artery is patent. The right popliteal artery at the knee is patent. There is an irregular, moderate to high-grade stenosis of the distal below the knee popliteal artery. The peroneal artery is hypertrophic in appearance. The anterior tibial artery is patent proximally but somewhat hypoplastic in appearance. The posterior tibial he tibial artery is nonvisualized and may be chronically occluded.. The anterior tibial artery is patent to the mid leg. The anterior tibial artery tapers to a very small caliber vessel in the distal leg. The robust peroneal artery extends distally and terminates in what appears to be the dorsalis pedis artery. There is a sizable artery arising from this artery and extending to the expected location of the posterior tibial artery which appears to feed the lateral plantar artery. 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 Angioplasty of the distal popliteal/tibial peroneal trunk stenosis was performed with a 3.5 mm balloon which resulted in significantly improved morphology and flow through the stenosis. Angiography of the right lower extremity was performed through the sheath. Right common femoral artery, superficial femoral artery, profunda artery are patent. Right popliteal artery is patent. The right anterior tibial artery and peroneal artery are patent proximally. Posterior tibial artery is again nonvisualized proximally. The anterior tibial artery appears to be patent distally. The peroneal artery appears to be somewhat irregular and small in caliber but remain patent distally. Some reconstitution of the lateral plantar artery appears to be present the foot. Distal right lower shotty angiography limited by catheter position. The sheath was removed. A closure device was deployed. Sterile dressings were applied. No immediate complications were identified. Total fluoroscopy time: min 10.6 minutes Dose area product: 107 Gycm2 The procedures performed under conscious sedation including continuous cardiopulmonary monitoring via dedicated sedation nurse. Gbyv-yv-fxjy sedation time: 80 minutes Impression: 1. No hemodynamically significant aortoiliac disease. 2. High-grade stenosis of the left distal popliteal artery below the knee treated with balloon angioplasty extending from the distal popliteal artery and tibial peroneal trunk 3. The peroneal artery is the dominant supply to the left lower extremity. A week anterior tibial artery is patent. 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 4. No hemodynamically significant in femoropopliteal stenosis on the right. Occlusion of the right posterior tibial artery.
== END 2019-09-29 13:38 | disposition home or self-care (01) ==
LOC: INTRAD 07:01
PROVIDERS: ATTEND Family Medicine
DX: I70.213 Atherosclerosis of native arteries of extremities with intermittent claudication, bilateral legs (principal); I10 Essential (primary) hypertension; G43.909 Migraine, unspecified, not intractable, without status migrainosus; E03.9 Hypothyroidism, unspecified; J43.9 Emphysema, unspecified; K21.9 Gastro-esophageal reflux disease without esophagitis; Z86.73 Personal history of transient ischemic attack (TIA), and cerebral infarction without residual deficits; Z85.118 Personal history of other malignant neoplasm of bronchus and lung; Z88.6 Allergy status to analgesic agent; Z88.5 Allergy status to narcotic agent; Z88.8 Allergy status to other drugs, medicaments and biological substances
CPT/HCPCS: 36415; 37228; 75625; 75716; 76937; 80053; 85025; 85610; 99152; 99153; C1725; C1760; C1769; C1892; C1894; J1644; J2250; J3010; Q9967; G0269

== ENCOUNTER → 2019-10-02 | Outpatient (CLI) | payer MEDICARE ==
[2019-09-29 12:45] VITALS: BP 133/70
[~2019-10-02] MED LIST changes: +CRESTOR40 MG PO; +OMEP40CA45 PO; +POTA10TA12 PO; +TROS20TA2 PO
--- NOTE | 2019-10-02 13:44 | RAD ---
CT of the chest without contrast 10/02/2019 INDICATION: History of lung cancer COMPARISON STUDY: CT of the chest with contrast May 03, 2018 TECHNIQUE: Multidetector CT imaging of the chest was performed without IV contrast FINDINGS: Heart size is normal. No pericardial effusion is seen. Scattered coronary calcification is present. No pathologically enlarged mediastinal lymphadenopathy is identified. There is no pneumothorax, pleural effusion, or focal consolidative lesion. But appears to be centrilobular emphysematous changes are seen throughout the bilateral lungs, similar to comparison study. Mild linear areas of scarring or fibrosis are seen involving the lung bases, this is unchanged. Stable 5 mm noncalcified nodule, right lower lobe (axial image 31. No new or increasing pulmonary nodules or masses are identified. Partial lung resection noted on the right. Surgical clips in the hilum stable in noted. Possible diffuse osteopenia is seen. No acute osseous abnormalities are identified. Limited visualization of the upper abdomen demonstrates no acute changes. IMPRESSION: 1. No evidence of acute cardiopulmonary abnormality or acute change from prior exam. Stable postoperative emphysematous changes. 2. Stable subpleural 5 mm nodule, right lower lobe. Nodule most likely benign etiology. Recommended repeat scan in one year to ensure two-year stability. CT DOSING PQRS STATEMENT: One or more of the following individualized dose reduction techniques were utilized for this examination: 1. Automated exposure control 2. Adjustment of the mA and/or kV according to patient size 3. Use of iterative reconstruction technique Electronically signed by: Chirag Lezama MD (10/02/2019 1:41 PM) [facility]
== END | disposition home or self-care (01) ==
LOC: CT 11:36
PROVIDERS: ATTEND Internal Medicine Pulmonary Disease
DX: C34.90 Malignant neoplasm of unspecified part of unspecified bronchus or lung (principal); J43.9 Emphysema, unspecified; R91.1 Solitary pulmonary nodule
CPT/HCPCS: 71250

== ENCOUNTER → 2020-06-07 | Outpatient (CLI) | payer MEDICARE ==
[2019-09-29 12:45] VITALS: BP 133/70
[~2020-06-07] MED LIST changes: -CETI10TA24 PO; +CETI10TA74 PO
--- NOTE | 2020-06-07 16:19 | CARD ---
MR#: [id number] Date of Study: 06/07/2020 Ordering Physician: JASMIN MARTINEZ, Referring Physician: JASMIN MARTINEZ, Tech: Chaya Lainez APPROVED REPORT EXAM: Two-dimensional and M-mode echocardiogram with Doppler and color Doppler. Other Information Quality : AverageHR: 70bpm INDICATION Dyspnea RISK FACTORS Hypertension Hyperlipidemia 2D DIMENSIONS RVDd3.3 (2.9-3.5cm)Left Atrium(2D)2.9 (1.6-4.0cm) IVSd1.0 (0.7-1.1cm)Aortic Root(2D)2.3 (2.0-3.7cm) LVDd3.9 (3.9-5.9cm)LVOT Diameter1.7 (1.8-2.4cm) PWd0.9 (0.7-1.1cm)LVDs1.6 (2.5-4.0cm) FS (%) 58.8 %SV57.2 ml Aortic Valve AoV Peak Zev.125.5cm/sAoV VTI24.6cm AO Peak GR.6.3mmHgLVOT Peak Zev.105.0cm/s LVOT VTI 24.53cmAO Mean GR.3mmHg AXEL (VMAX)1.68np1CPK (VTI)2.19cm2 AI P 1/2 Wqeu815xx Mitral Valve MV E Gjaazgxx16.9cm/sMV DECEL DUDL261fv MV A Iwfvpcbl96.6cm/sMV E Mean Gr.2mmHg MV RLG13lrH/A Ratio0.8 MVA (PHT)3.98cm2 TDI E/Lateral E'9.7E/Medial E'9.1 Pulmonary Valve PV Peak Dfpafcdo44.8cm/sPV Peak Grad.3mmHg Tricuspid Valve TR P. Rjhkeefz323lc/sRAP IBPSSRLG6bnDy TR Peak Gr.28bxBiFWAT86dwDi Pulmonary Vein S1 Jnsfdmym96.6cm/sD2 Pitpvzsr87.9cm/s PVa smgeprhr782uniz LEFT VENTRICLE The left ventricle is normal size. There is normal left ventricular wall thickness. The left ventricu lar systolic function is normal and the ejection fraction is within normal range. The Ejection Fracti on is 55-60%. There is normal LV segmental wall motion. Transmitral Doppler flow pattern is Grade I-a bnormal relaxation pattern. RIGHT VENTRICLE The right ventricle is normal size. There is normal right ventricular wall thickness. The right ventr icular systolic function is normal. ATRIA The left atrium size is normal. The right atrium size is normal. The interatrial septum is intact wit h no evidence for an atrial septal defect or patent foramen ovale as noted on 2-D or Doppler imaging. AORTIC VALVE The aortic valve is thickened but opens well. Doppler and Color Flow revealed trace to mild aortic re gurgitation. There is no significant aortic valvular stenosis. MITRAL VALVE The mitral valve is normal in structure and function. There is no evidence of mitral valve prolapse. There is no mitral valve stenosis. Doppler and Color-flow revealed trace mitral regurgitation. TRICUSPID VALVE The tricuspid valve is normal in structure and function. Doppler and Color Flow revealed trace tricus pid regurgitation with an estimated PAP of 28 mmHg. There is no tricuspid valve stenosis. PULMONIC VALVE The pulmonic valve is not well visualized. Doppler and Color Flow revealed trace pulmonic valvular re gurgitation. GREAT VESSELS The aortic root is normal in size. The ascending aorta is normal in size. The IVC is normal in size a nd collapses >50% with inspiration. PERICARDIAL EFFUSION There is no evidence of significant pericardial effusion. Critical Notification Critical Value: No <Conclusion> The left ventricle is normal size. The left ventricular systolic function is normal and the ejection fraction is within normal range. The Ejection Fraction is 55-60%. Doppler and Color Flow revealed trace to mild aortic regurgitation. There is no significant aortic valvular stenosis. Doppler and Color-flow revealed trace mitral regurgitation. Doppler and Color Flow revealed trace tricuspid regurgitation with an estimated PAP of 28 mmHg. Signed by : Crispin Devine MD Electronically Approved : 06/07/2020 16:18:47
== END ==
LOC: ECHO 10:40
PROVIDERS: ATTEND Internal Medicine Cardiovascular Disease
DX: I35.1 Nonrheumatic aortic (valve) insufficiency (principal)
CPT/HCPCS: 93306

== ENCOUNTER → 2020-06-21 | Outpatient (CLI) | payer MEDICARE ==
[2019-09-29 12:45] VITALS: BP 133/70
[~2020-06-21] MED LIST changes: +FLUT1BLS3 IH; +FURO-68 PO; +TIZA4TAB2 PO
== END ==
LOC: LAB 09:21
PROVIDERS: ATTEND Internal Medicine Cardiovascular Disease
DX: Z01.812 Encounter for preprocedural laboratory examination (principal); R06.00 Dyspnea, unspecified; R07.9 Chest pain, unspecified; Z20.828 Contact with and (suspected) exposure to other viral communicable diseases
CPT/HCPCS: U0003

== ENCOUNTER 2020-06-25 08:16 | Outpatient (CLI) | payer MEDICARE ==
[2020-06-25] VITALS (14 sets, daily range): BP systolic 115–140; BP diastolic 50–87
[~2020-06-25] VITALS: Ht 152.4 cm; Wt 69.9 kg
[~2020-06-25 08:16] MED LIST changes: -FLUT1BLS3 IH; -FURO-68 PO; -TIZA4TAB2 PO
[2020-06-25 08:57] LABS: HEMATOCRIT 36.5 % (36.0-47.0); RED BLOOD COUNT 4.21 x10^6/uL (3.50-5.40); RED CELL DISTRIBUTION WIDTH 13.7 % (11.5-14.5)
[2020-06-25 09:07] LABS: CALCIUM 9.6 mg/dL (8.5-10.1); CREATININE 1.1 mg/dL (0.6-1.0); GFR 48.4; POTASSIUM 4.4 mmol/L (3.5-5.1)
[2020-06-25] MEDS ORDERED: FURO-68 PO (09:21)
[2020-06-25] MEDS ORDERED: TIZA4TAB2 PO (09:21)
[2020-06-25] MEDS ORDERED: TRAZ150T49 PO (09:21)
[2020-06-25] MEDS ORDERED: FLUT1BLS3 IH (09:21)
[2020-06-25] MEDS ORDERED: LIDOCAINE 1% Multi-Dose 20 ML VIAL. ONE (10:18)
[2020-06-25] MEDS ORDERED: IOHEXOL 300 MG/ML 100ML VIAL. ONE (10:18)
[2020-06-25] MEDS ORDERED: VERAPAMIL 5 MG/2 ML VIAL. ONE (10:46)
[2020-06-25] MEDS ORDERED: fentaNYL PF VIAL 100 MCG/2 ML VIAL ONE (10:46)
[2020-06-25] MEDS ORDERED: NITROGLYCERIN 200 MCG/2 ML SYRINGE FOR CATH/VASC LAB. ONE (10:46)
[2020-06-25] MEDS ORDERED: HEPARIN for IV BOLUS 10,000 UNIT/10 ML VIAL. ONE (10:46)
[2020-06-25] MEDS ORDERED: MIDAZOLAM HCL/PF 5 MG/5 ML VIAL. ONE (10:46)
[2020-06-25] MEDS ORDERED: MIDAZOLAM HCL/PF 5 MG/5 ML VIAL. IV ONE (11:15)
[2020-06-25] MEDS ORDERED: fentaNYL PF VIAL 100 MCG/2 ML VIAL IV ONE (11:15)
[2020-06-25] MEDS ORDERED: NITROGLYCERIN 200 MCG/2 ML SYRINGE FOR CATH/VASC LAB. IART ONE (11:15)
[2020-06-25] MEDS ORDERED: VERAPAMIL 5 MG/2 ML VIAL. IART ONE (11:15)
[2020-06-25] MEDS ORDERED: IOHEXOL 300 MG/ML 100ML VIAL. IART ONE (11:15)
[2020-06-25] MEDS ORDERED: HEPARIN for IV BOLUS 10,000 UNIT/10 ML VIAL. IART ONE (11:15)
[2020-06-25] MEDS ORDERED: LIDOCAINE 1% Multi-Dose 20 ML VIAL. INJ ONE (11:15)
[2020-06-25] MEDS ORDERED: IV NORMAL SALINE 500ML BAG 500 ML IV ONE (11:20)
[2020-06-25] MEDS ORDERED: NITROGLYCERIN 200 MCG/2 ML SYRINGE FOR CATH/VASC LAB. ICAR ONE (11:30)
[2020-06-25] MEDS ORDERED: HEPARIN for IV BOLUS 10,000 UNIT/10 ML VIAL. IV ONE (11:30)
--- NOTE | 2020-06-25 12:26 | CARD ---
MR#: [id number] Date of Study: 06/25/2020 Ordering Physician: JASMIN MARTINEZ, Referring Physician: JASMIN MARTINEZ, Tech: Alisha Pratt APPROVED REPORT Technologist: Alisha Pratt Nurse: [place] R.N. Procedure(s) performed: fl time: 8.5 min dose: 31 gycm2 contrast: 59 ml moderate sedation: 54 MINS HISTORY The patient is a 75 year-old female with a history of : tobacco history() , hypertension, dyslipidemi a. INDICATION The indication(s) include : unstable angina , dyspnea. CSHA Clinical Frailty Scale CS Clinical Frailty Scale: Mildly Frail Heart Failure Heart Failure: Yes If Yes, Newly Diagnosed: No If Yes, HF Type: Diastolic If Yes, NYHA Class: Class II PROCEDURE NARRATIVE After appropriate informed consent the patient was brought to the catheterization laboratory and the right wrist and right neck were prepped and draped in usual sterile fashion. Procedure details: Under lidocaine anesthesia a 6 Finnish introducer sheath was placed in the right radial artery via the Seldinger technique. A 5 Finnish sheath was placed in the right internal jugular vein via ultrasound and fluoroscopic guidance. Next, a 5 Finnish PA catheter was advanced to the right heart chambers an d pressures and saturations were obtained. Diagnostic angiography was performed with a 6 Finnish TIG catheter. LVEDP was measured with the TIG catheter and a pullback was performed. Findings: Right heart catheterization RA 8/6/4 RV 33/0/6 PA 34/11/22 Pulmonary capillary wedge pressure was unable to be obtained due to difficulty wedging the catheter PA saturation 76.3 and an FA saturation of 99% Donovan cardiac output of 4.4 L/min Diagnostic angiography: Left main is a large-caliber vessel with normal angiographic appearance LAD is a moderate caliber vessel with normal angiographic appearance Left circumflex is a moderate caliber vessel with mild luminal irregularities of up to 30% RCA is a large caliber dominant vessel with a mid 50% stenosis RPDA and RPL are small to moderate caliber vessels with normal angiographic appearance Interventional technique: Given the moderate stenosis involving the RCA a decision was made to evaluate it with IFR. Heparin w as used for anticoagulation. Through a 5 Finnish JR4 guide catheter a pressure wire was advanced to t he distal RCA after appropriate normalization and nitroglycerin administration. And IFR value of 0.9 1 was noted. A pullback confirmed appropriate measurements. Given lack of significant ischemia base d on flow reserve measurements and anatomically moderate stenosis a decision was made to defer any fu rther intervention. Final angiography demonstrated no evidence of guide or wire related complication s. The right neck sheath and radial sheath were removed with manual compression and Terumo radial ba nd, respectively. Conclusion 1. Normal biventricular filling pressures 2. No significant pulmonary hypertension 3. Normal cardiac output 4. One-vessel coronary artery disease involving the RCA with a negative IFR Recommendations 1. Aggressive medical therapy and treatment of her COPD. Continue cardiac risk factor modification Signed by : Jasmin Martinez, Electronically Approved : 06/25/2020 12:26:31
--- NOTE | 2020-06-25 14:33 | NUR ---
Right radial TR band removed, no bleeding noted. Guaze and opsite applied, as well as armboard. No complications. VSS. Will monitor.
--- NOTE | 2020-06-25 15:17 | NUR ---
Discharge Note: MAMTA KNIGHT Discharge instructions and discharge home medications reviewed with Patient and a copy given. All questions have been answered and understanding verbalized. The following instructions and handouts were given: Moderate Sedation and Radial Site care Discontinued left PIV, bandaid intact. Patient discharged to home with her friend,Lucinda via private vehicle.
== END 2020-06-25 15:15 | disposition home or self-care (01) ==
LOC: CCL 08:16
PROVIDERS: ATTEND Internal Medicine Cardiovascular Disease
DX: I25.110 Atherosclerotic heart disease of native coronary artery with unstable angina pectoris (principal); R06.00 Dyspnea, unspecified; I10 Essential (primary) hypertension; M17.0 Bilateral primary osteoarthritis of knee; E03.9 Hypothyroidism, unspecified; F32.9 Major depressive disorder, single episode, unspecified; K21.9 Gastro-esophageal reflux disease without esophagitis; E78.00 Pure hypercholesterolemia, unspecified; J43.9 Emphysema, unspecified; M10.9 Gout, unspecified; F41.9 Anxiety disorder, unspecified; Z87.440 Personal history of urinary (tract) infections; Z87.891 Personal history of nicotine dependence; Z85.118 Personal history of other malignant neoplasm of bronchus and lung; Z79.899 Other long term (current) drug therapy; Z98.51 Tubal ligation status; Z98.890 Other specified postprocedural states; Z90.49 Acquired absence of other specified parts of digestive tract; Z90.710 Acquired absence of both cervix and uterus; Z72.89 Other problems related to lifestyle; Z88.5 Allergy status to narcotic agent; Z88.8 Allergy status to other drugs, medicaments and biological substances; Z82.49 Family history of ischemic heart disease and other diseases of the circulatory system; Z83.3 Family history of diabetes mellitus
CPT/HCPCS: 36415; 76937; 80048; 85027; 85610; 93460; 93571; 99152; 99153; C1769; C1773; C1887; C1892; J1644; J2250; J3010; J3490; J7040; Q9967

== ENCOUNTER → 2020-10-07 | Outpatient (CLI) | payer MEDICARE ==
[2020-06-25 14:30] VITALS: BP 117/58
[~2020-10-07] MED LIST changes: +FLUT1BLS3 IH; +FURO-68 PO; +LISI10TA16 PO; -LISI10TA2 PO; -MECL12.573 PO; +MECL12.574 PO; +TIZA4TAB2 PO
--- NOTE | 2020-10-07 15:47 | RAD ---
PQRS Compliance Statement: One or more of the following individualized dose reduction techniques were utilized for this examinat ion: 1. Automated exposure control 2. Adjustment of the mA and/or kV according to patient size 3. Use of iterative reconstruction technique CT THORAX WO 10/07/2020 10:51 AM Indication: Lung nodule COMPARISON: 10/02/2019 TECHNIQUE: Multiple axial CT images of the chest were obtained without intravenous contrast. Coronal and sagittal reformats are provided. FINDINGS: Mild centrilobular pulmonary emphysema. There is scarring at the right lung base. There is a 2 mm shaun id noncalcified pulmonary nodule in the left upper lobe (series 3, image 54). Right upper lobectomy c hanges are present. There is scarring in the inferior lingula. Bronchial wall thickening compatible w ith nonspecific bronchitis. No new or enlarging solid noncalcified pulmonary nodules. Stable 5 mm sub pleural nodule in the lateral right lower lobe (series 3, image 150). No pleural effusions, pulmonary vascular congestion or pneumothorax. Heart size within normal limits. Calcified right hilar lymph no anne are present. Coronary artery vascular calculations are present. Small hiatal hernia. Anterior per icardiophrenic lymph node measures 6 mm, stable. Adrenal glands are normal in appearance. No suspicio us normality within the upper abdomen. No suspicious osseous abnormality. IMPRESSION: No new or enlarging solid noncalcified pulmonary nodules. Stable 5 mm subpleural nodule in the latera l right lower lobe. COPD changes are present without focal airspace consolidation. Right upper lobectomy changes. No evid ence for recurrent or residual disease. Electronically signed by: Oly Flores MD (10/07/2020 3:45 PM) [id number]
== END ==
LOC: CT 11:07
PROVIDERS: ATTEND Internal Medicine Pulmonary Disease
DX: R91.1 Solitary pulmonary nodule (principal); J44.9 Chronic obstructive pulmonary disease, unspecified
CPT/HCPCS: 71250

== ENCOUNTER → 2021-07-29 | Outpatient (CLI) | payer MEDICARE ==
[2020-06-25 14:30] VITALS: BP 117/58
[~2021-07-29] MED LIST changes: -LISI2.5T PO; +LISI2.5T12 PO; -MECL12.574 PO; +MECL12.582 PO; -OMEP40CA45 PO; +OMEP40CA7 PO; +TIZA-75 PO; -TIZA4TAB2 PO
--- NOTE | 2021-07-30 11:37 | RAD ---
MR#: [id number] Date of Study: 07/29/2021 Ordering Physician: JASMIN MARTINEZ, Referring Physician: JASMIN MARTINEZ, Tech: Elver Jacobs MBA, RDMS, RVT, RDCS, RTR APPROVED REPORT Patient Location: OUT-PATIENT Indications PAD VELOCITY AND DOPPLER WAVEFORM ANALYSIS RIGHT cm/secWaveformSeverity LEFT cm/secWaveform Severity dCFA dCFA 155.0Biphasic Prof Fem Art. Prof Fem Art. 76.0Biphasic Fem Art Prox. Fem Art Prox. 113.0Biphasic Fem Art Mid. Fem Art Mid. 115.0Biphasic Fem Art Dist. Fem Art Dist. 75.0Biphasic Pop Art(Fossa) Pop Art(AK) 61.0Biphasic HEAD OF OPERATION AND LOGISTICS Prox. HEAD OF OPERATION AND LOGISTICS Prox. 25.0Monophasic HEAD OF OPERATION AND LOGISTICS Dist. HEAD OF OPERATION AND LOGISTICS Dist. Occluded Per Art Mid. Per Art Mid. 51.0Biphasic ARCHIE Prox. ARCHIE Prox. 34.0Biphasic DPA DPA 15Monophasic Findings Grayscale images demonstrate mild diffuse atherosclerotic plaque in the left lower extremity. No sig nificant obstructive disease noted from the common femoral artery to the popliteal segment. Below th e knee there is probably diffuse disease involving the posterior tibial artery with likely distal occ lusion. Biphasic waveforms are noted in the anterior tibial and peroneal vessels. Monophasic wavefo félix at the level of the distal dorsalis pedis artery. Critical Notification Critical Value: No <Conclusion> 1. No significant above-knee disease bilaterally 2. Probable left posterior tibial artery occlusion 2. Patent peroneal and anterior tibial arteries with biphasic waveforms with slightly diminished ro ocities Signed by : Jasmin Martinez, Electronically Approved : 07/30/2021 11:37:06
== END ==
LOC: US 15:49
PROVIDERS: ATTEND Internal Medicine Cardiovascular Disease
DX: I70.202 Unspecified atherosclerosis of native arteries of extremities, left leg (principal)
CPT/HCPCS: 93926

== ENCOUNTER 2021-08-14 08:12 | Outpatient (CLI) | payer MEDICARE ==
[~2021-08-14] VITALS: Ht 152.4 cm; Wt 68.0 kg
[2021-08-14] VITALS (9 sets, daily range): BP systolic 104–129; BP diastolic 50–64
[2021-08-14 08:58] LABS: HEMATOCRIT 37.2 % (36.0-47.0); RED BLOOD COUNT 4.37 x10^6/uL (3.50-5.40); RED CELL DISTRIBUTION WIDTH 14.6 % (11.5-14.5); WHITE BLOOD COUNT 6.9 x10^3/uL (4.0-11.0)
[2021-08-14 09:11] LABS: CALCIUM 8.6 mg/dL (8.5-10.1); CREATININE 1.2 mg/dL (0.6-1.0); GFR 43.7; POTASSIUM 4.2 mmol/L (3.5-5.1)
[2021-08-14 09:36] LABS: PROTHROMBIN TIME PATIENT 12.6 SEC (11.7-14.0)
[2021-08-14] MEDS ORDERED: HEPARIN for ARTERIAL LINE 1,500 ML ONE (10:02)
[2021-08-14] MEDS ORDERED: LIDOCAINE 1% Multi-Dose 20 ML VIAL. ONE (10:02)
[2021-08-14] MEDS ORDERED: IODIXANOL 320 MG/ML 100 ML VIAL. ONE (10:02)
[2021-08-14] MEDS ORDERED: FURO40TA4 PO (10:10)
[2021-08-14] MEDS ORDERED: LOSA-73 PO (10:10)
[2021-08-14] MEDS ORDERED: LEVO125T5 PO (10:10)
[2021-08-14] MEDS ORDERED: DOXY100C3 PO (10:10)
[2021-08-14] MEDS ORDERED: LIDOCAINE 1% PF 2 ML VIAL. ONE (10:13)
[2021-08-14] MEDS ORDERED: fentaNYL PF VIAL 100 MCG/2 ML VIAL ONE (10:32)
[2021-08-14] MEDS ORDERED: MIDAZOLAM HCL/PF 2 MG/2 ML VIAL. ONE (10:32)
[2021-08-14] MEDS ORDERED: HEPARIN for IV BOLUS 10,000 UNIT/10 ML VIAL. ONE (10:33)
[2021-08-14] MEDS ORDERED: VERAPAMIL 5 MG/2 ML VIAL. ONE (10:33)
[2021-08-14] MEDS ORDERED: NITROGLYCERIN 200 MCG/2 ML SYRINGE FOR CATH/VASC LAB. ONE (10:33)
[2021-08-14] MEDS: IODIXANOL 320 MG/ML 100 ML VIAL. IART ONE (11:18)
[2021-08-14] MEDS: NITROGLYCERIN 200 MCG/2 ML SYRINGE FOR CATH/VASC LAB. IART ONE (11:20)
[2021-08-14] MEDS: MIDAZOLAM HCL/PF 2 MG/2 ML VIAL. IV ONE (11:20)
[2021-08-14] MEDS: fentaNYL PF VIAL 100 MCG/2 ML VIAL IV ONE (11:20)
[2021-08-14] MEDS: LIDOCAINE 1% PF 2 ML VIAL. INJ ONE (11:21)
[2021-08-14] MEDS: VERAPAMIL 5 MG/2 ML VIAL. IART ONE (11:21)
[2021-08-14] MEDS: HEPARIN for IV BOLUS 10,000 UNIT/10 ML VIAL. IART ONE (11:22)
--- NOTE | 2021-08-14 11:57 | CARD ---
MR#: [id number] Date of Study: 08/14/2021 Ordering Physician: JASMIN MARTINEZ, Referring Physician: JASMIN MARTINEZ, Tech: Alisha Pratt RT(R) APPROVED REPORT Patient StatusOUT-PATIENT Bolter Helper: Alisha Pratt RT(R) Procedure(s) performed: FL TIME: 7.8 MIN DOSE: 55 GYCM2 CONTRAST: 73 ML MODERATE SEDATION: 43 MINS Aortogram with bilateral femoral run-off (CPT 34465-55) Common femoral artery catheter placement on the right side (CPT 20058-90) Popliteal artery catheter placement on the left side (CPT 48235-99) INDICATION FOR PROCEDURE The indication(s) include : Unilateral claudication: Left , Abnormal Doppler study. PROCEDURE NARRATIVE Clinical information: 76-year-old woman who has a known prior history of left popliteal angioplasty presented to the office in the setting of atypical claudication. She underwent a Doppler study which revealed below-knee di sease and ultimately after discussion the patient decided to proceed with a aortogram with runoff. Procedure details: After appropriate informed consent the right wrist was prepped and draped in usual sterile fashion. Next a 6 [place]orran sheath was placed in the right radial artery. Next, a 5 [place]ran pigtail catheter was advanced through the abdominal aorta and digital subtraction angiography was performed. Next a 4 Paulino nch angled glide catheter was advanced into the bilateral iliac vessels and lower extremity runoff wa s performed. On the left side the catheter was placed in the SFA popliteal segment. On the right si de the catheter was placed in the common femoral artery. Findings: Abdominal aorta has mild diffuse irregularities with tapering in the distal segment. 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 Renal arteries have no significant stenosis bilaterally. Bilateral common iliac arteries have no significant disease Bilateral external iliac arteries have no significant disease Left external iliac artery has an ostial 50% stenosis Right external iliac artery has no significant disease Right common femoral artery has no significant disease Right profunda has no significant disease Right SFA has no significant disease Right popliteal artery has no significant disease Right anterior tibial artery has proximal 40 to 50% stenosis. 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 Left common femoral artery has no significant disease Left profunda has no significant disease Left SFA has no significant disease Left popliteal artery has no significant disease Left tibioperoneal trunk has a 50% stenosis Left anterior tibial artery is patent proximally but small in caliber distally with probable subtotal occlusion. Left posterior tibial artery is proximally occluded. Left peroneal artery is a dominant circulation to the foot. The distal vessel provides collaterals t o the dorsalis pedis. Given that the patient's pain was mostly localized to her knee and lack of significant claudication w ith activity and lack of any open wounds or evidence of critical limb ischemia a decision was made to treat the patient medically. At case completion the catheters were removed and hemostasis was achie [place] via a Terumo radial band. No acute complications. Conclusion 1. No significant above-knee disease bilaterally 2. One-vessel runoff on the right side with a patent anterior tibial artery. 3. One-vessel runoff on the left side with a patent peroneal artery. Recommendations Continue aggressive medical therapy. If the patient has no other cause obvious cause of her left kne e pain could consider angioplasty at a later date. Continue exercise and risk factor modification. Signed by : Jasmin Martinez, Electronically Approved : 08/14/2021 11:56:50
[2021-08-14 12:22] LABS: CHOLESTEROL/HDL RATIO 2.8
== END 2021-08-14 14:07 | disposition home or self-care (01) ==
LOC: CCL 08:12
PROVIDERS: ATTEND Internal Medicine Cardiovascular Disease
DX: I73.9 Peripheral vascular disease, unspecified (principal); I10 Essential (primary) hypertension; E78.00 Pure hypercholesterolemia, unspecified; J43.9 Emphysema, unspecified; E03.9 Hypothyroidism, unspecified; K21.9 Gastro-esophageal reflux disease without esophagitis; M19.90 Unspecified osteoarthritis, unspecified site; F41.9 Anxiety disorder, unspecified; F32.9 Major depressive disorder, single episode, unspecified; Z86.73 Personal history of transient ischemic attack (TIA), and cerebral infarction without residual deficits; Z90.49 Acquired absence of other specified parts of digestive tract; Z98.51 Tubal ligation status; Z90.710 Acquired absence of both cervix and uterus; Z98.890 Other specified postprocedural states; Z79.899 Other long term (current) drug therapy; Z87.891 Personal history of nicotine dependence; Z88.5 Allergy status to narcotic agent; Z88.8 Allergy status to other drugs, medicaments and biological substances; Z82.49 Family history of ischemic heart disease and other diseases of the circulatory system
CPT/HCPCS: 36246; 36247; 36415; 75625; 75716; 80048; 80061; 85027; 85610; 99152; 99153; C1769; C1894; J1644; J2250; J3010; J3490; Q9967